=== PATIENT | female | born 1965 | race Caucasian/White ===

== ENCOUNTER 2017-05-04 12:51 | Emergency (ER) | payer OTHER ==
[2017-05-04] MEDS ORDERED: Ketorolac 30 MG/ML SDV IVPUSH ONE (13:30)
[2017-05-04] MEDS ORDERED: SUMAtriptan 6 MG/0.5 ML SDV SUBCUT ONE (13:30)
[2017-05-04] MEDS ORDERED: LORazepam 2 MG/ML SDV IVPUSH ONE (13:30)
[2017-05-04] MEDS ORDERED: Ondansetron 4 MG/2 ML SDV IVPUSH ONE (13:30)
[2017-05-04] MEDS ORDERED: Sodium Chloride 0.9% 1,000 ML IV ONE (13:30)
--- NOTE | 2017-05-04 13:30 | EDM.PDOC ---
ED HPI GENERAL MEDICAL PROBLEM - General Chief Complaint: Gastrointestinal Problem Stated Complaint: NUMBNESS,NAUSEOUS Time Seen by Provider: 05/04/17 13:28 Source of Information: Reports: Patient History Limitations: Reports: No Limitations - History of Present Illness INITIAL COMMENTS - FREE TEXT/NARRATIVE: History of present illness: [52-year-old female comes in complaining of migraine headache. Patient indicates she has been sporadically and this is one of her customary headaches finds that when she has increased stress or musculoskeletal pain or triggers one of her migraines. Patient cases is no worse than when she's had in the past but that is the type that needs additional intervention besides what she has a home with her sumatriptan.] Review of systems: As per history of present illness and below otherwise all systems reviewed and negative. Past medical history: As per history of present illness and as reviewed below otherwise noncontributory. Surgical history: As per history of present illness and as reviewed below otherwise noncontributory. Social history: No reported history of drug or alcohol abuse. Family history: As per history of present illness and as reviewed below otherwise noncontributory. Physical exam: HEENT: Atraumatic, normocephalic, pupils reactive, negative for conjunctival pallor or scleral icterus, mucous membranes moist, throat clear, neck supple, nontender, trachea midline. Lungs: Clear to auscultation, breath sounds equal bilaterally, chest nontender. Heart: S1S2, regular, negative for clicks, rubs, or JVD. Abdomen: Soft, nondistended, nontender. Negative for masses or hepatosplenomegaly. Negative for costovertebral tenderness. Pelvis: Stable nontender. Genitourinary: Deferred. Rectal: Deferred. Extremities: Atraumatic, negative for cords or calf pain. Neurovascular unremarkable. Neuro: Awake, alert, oriented. Cranial nerves II through XII unremarkable. Cerebellum unremarkable. Motor and sensory unremarkable throughout. Exam nonfocal. Assessment is benign save the subjective complaint is noted of migraine headache. Migraine resolved after treatment patient ready for home Diagnostics: [] Therapeutics: [IV fluid, Toradol, Ativan,] Impression: [Migraine headache] Plan: [Follow-up at home] Definitive disposition and diagnosis as appropriate pending reevaluation and review of above. migraine Pain Score (Numeric/FACES): 9 - Related Data Allergies Allergy/AdvReac Type Severity Reaction Status Date / Time No Known Allergies Allergy Verified 05/04/17 13:11 Home Meds: Home Meds Magnesium 2 tab PF DAILY 06/13/15 [History] SUMAtriptan [Imitrex] 100 mg PO DAILY 05/04/17 [History] Past Medical History Cardiovascular History: Reports: None Respiratory History: Reports: None Gastrointestinal History: Reports: Chronic Constipation, Hemorrhoids Genitourinary History: Reports: None Musculoskeletal History: Reports: None Neurological History: Reports: Migraines Psychiatric History: Reports: None Endocrine/Metabolic History: Reports: None Hematologic History: Reports: None Immunologic History: Reports: None Oncologic (Cancer) History: Reports: None Dermatologic History: Reports: None - Infectious Disease History Infectious Disease History: Reports: Mumps - Past Surgical History Head Surgeries/Procedures: Reports: None HEENT Surgical History: Reports: Naso-Sinus Surgery, Other (See Below) Social & Family History - Family History Neurological: Reports: Migraines, TIA - Tobacco Use Smoking Status *Q: Never Smoker Second Hand Smoke Exposure: Yes - Caffeine Use Caffeine Use: Reports: Coffee - Alcohol Use Days Per Week of Alcohol Use: 0 - Recreational Drug Use Recreational Drug Use: No Drug Use in Last 12 Months: No ED ROS GENERAL - Review of Systems Review Of Systems: See Below (History of present illness) ED EXAM, GENERAL - Physical Exam Exam: See Below (See history of present illness) Course - Vital Signs Last Recorded V/S: Last Vital Signs Temp 36.4 C 05/04/17 13:07 Pulse 87 05/04/17 13:07 Resp 16 05/04/17 13:07 BP 125/69 05/04/17 13:07 Pulse Ox 97 05/04/17 13:07 - Orders/Labs/Meds Meds: Medications Discontinued Medications Generic Name Dose Route Start Last Admin Trade Name Freq PRN Reason Stop Dose Admin Sodium Chloride 1,000 mls @ 999 mls/hr 05/04/17 13:30 05/04/17 13:45 Normal Saline IV 05/04/17 14:30 999 mls/hr STAT ONE Administration Ketorolac Tromethamine 30 mg 05/04/17 13:30 05/04/17 13:47 Toradol IVPUSH 05/04/17 13:31 30 mg ONETIME ONE Administration Lorazepam 1 mg 05/04/17 13:30 05/04/17 13:47 Ativan IVPUSH 05/04/17 13:31 1 mg ONETIME ONE Administration Ondansetron HCl 8 mg 05/04/17 13:30 05/04/17 13:50 Zofran IVPUSH 05/04/17 13:31 8 mg ONETIME ONE Administration Sumatriptan Succinate 6 mg 05/04/17 13:30 05/04/17 13:46 Imitrex SUBCUT 05/04/17 13:31 6 mg ONETIME ONE Administration Departure - Departure Time of Disposition: 14:42 Disposition: Home, Self-Care 01 Condition: Good Clinical Impression: Migraine - Discharge Information Referrals: Cyndie Gutierrez NP [Primary Care Provider] - Forms: ED Department Discharge Additional Instructions: The following information is given to patients seen in the emergency department who are being discharged to home. This information is to outline your options for follow-up care. We provide all patients seen in our emergency department with a follow-up referral. The need for follow-up, as well as the timing and circumstances, are variable depending upon the specifics of your emergency department visit. If you don't have a primary care physician on staff, we will provide you with a referral. We always advise you to contact your personal physician following an emergency department visit to inform them of the circumstance of the visit and for follow-up with them and/or the need for any referrals to a consulting specialist. The emergency department will also refer you to a specialist when appropriate. This referral assures that you have the opportunity for follow-up care with a specialist. All of these measure are taken in an effort to provide you with optimal care, which includes your follow-up. Under all circumstances we always encourage you to contact your private physician who remains a resource for coordinating your care. When calling for follow-up care, please make the office aware that this follow-up is from your recent emergency room visit. If for any reason you are refused follow-up, please contact the [facility] Emergency Department at and asked to speak to the emergency department charge nurse. Use your migraine medicine at home to help prevent migraines Follow-up with primary care provider one to 2 days Turn to ED as needed as discussed
[2017-05-04 14:59] VITALS: BP 114/67
== END 2017-05-04 15:00 | disposition home or self-care (01) ==
LOC: MW.ED 12:51
DX: G43.909 Migraine, unspecified, not intractable, without status migrainosus (principal); Z79.899 Other long term (current) drug therapy
CPT/HCPCS: 96361; 96372; 96374; 96375; 99283; J1885; J2060; J2405; J3030; J7040

== ENCOUNTER 2017-05-11 17:29 | Emergency (ER) | payer OTHER ==
--- NOTE | 2017-05-11 18:52 | EDM.PDOC ---
ED HPI GENERAL MEDICAL PROBLEM - General Chief Complaint: Upper Extremity Injury/Pain Stated Complaint: FALL/PAIN RT SHOULDER Time Seen by Provider: 05/11/17 18:45 - History of Present Illness INITIAL COMMENTS - FREE TEXT/NARRATIVE: HISTORY AND PHYSICAL: History of present illness: Patient is 52-year-old white female who presents status post fall she struck her head and right shoulder she has mild headache and right shoulder pain she is slightly limited range of motion of her right shoulder due to pain she denies other significant trauma or concern Review of systems: As per history of present illness and below otherwise all systems reviewed and negative. Past medical history: As per history of present illness and as reviewed below otherwise noncontributory. Surgical history: As per history of present illness and as reviewed below otherwise noncontributory. Social history: No reported history of drug or alcohol abuse. Family history: As per history of present illness and as reviewed below otherwise noncontributory. Physical exam: HEENT: Atraumatic, normocephalic, pupils reactive, negative for conjunctival pallor or scleral icterus, mucous membranes moist, throat clear, neck supple, nontender, trachea midline. Lungs: Clear to auscultation, breath sounds equal bilaterally, chest nontender. Heart: S1S2, regular, negative for clicks, rubs, or JVD. Abdomen: Soft, nondistended, nontender. Negative for masses or hepatosplenomegaly. Negative for costovertebral tenderness. Pelvis: Stable nontender. Genitourinary: Deferred. Rectal: Deferred. Extremities: Patient is some tenderness to palpation over anterior deltoid of her right shoulder with limited range of motion secondary to pain no gross deformity CMS and neurovascular exam is unremarkable Neuro: Awake, alert, oriented. Cranial nerves II through XII unremarkable. Cerebellum unremarkable. Motor and sensory unremarkable throughout. Exam nonfocal. Diagnostics: CT brain x-ray right shoulder Therapeutics: Sling right upper extremity Impression: #1 observation status post fall #2 closed head trauma #3 acute right shoulder injury Definitive disposition and diagnosis as appropriate pending reevaluation and review of above. Right Shoulder Pain Score (Numeric/FACES): 7 - Related Data Allergies Allergy/AdvReac Type Severity Reaction Status Date / Time No Known Allergies Allergy Verified 05/11/17 17:58 Home Meds: Home Meds Magnesium 2 tab PF DAILY 06/13/15 [History] SUMAtriptan [Imitrex] 100 mg PO ASDIRECTED PRN 05/04/17 [History] Past Medical History - Past Health History Medical/Surgical History: Denies Medical/Surgical History Cardiovascular History: Reports: None Respiratory History: Reports: None Gastrointestinal History: Reports: Chronic Constipation, Hemorrhoids Genitourinary History: Reports: None Musculoskeletal History: Reports: None Neurological History: Reports: Migraines Psychiatric History: Reports: None Endocrine/Metabolic History: Reports: None Hematologic History: Reports: None Immunologic History: Reports: None Oncologic (Cancer) History: Reports: None Dermatologic History: Reports: None - Infectious Disease History Infectious Disease History: Reports: Chicken Pox, Influenza, Mumps - Past Surgical History Head Surgeries/Procedures: Reports: None HEENT Surgical History: Reports: Naso-Sinus Surgery, Other (See Below) Social & Family History - Family History Neurological: Reports: Migraines, TIA - Tobacco Use Smoking Status *Q: Never Smoker Second Hand Smoke Exposure: No - Caffeine Use Caffeine Use: Reports: Coffee, Soda - Alcohol Use Days Per Week of Alcohol Use: 0 - Recreational Drug Use Recreational Drug Use: No Drug Use in Last 12 Months: No Review of Systems - Review of Systems Review Of Systems: ROS reveals no pertinent complaints other than HPI. ED EXAM, GENERAL - Physical Exam Exam: See Below (See dictation) Course - Vital Signs Last Recorded V/S: Last Vital Signs Temp 36.2 C 05/11/17 18:04 Pulse 69 05/11/17 18:04 Resp 18 05/11/17 18:04 BP 142/69 H 05/11/17 18:04 Pulse Ox 99 05/11/17 18:04 - Orders/Labs/Meds Orders: Active Orders 24 hr Category Date Time Status Head wo Cont [CT] Stat Exams 05/11/17 18:50 Taken Shoulder Comp Rt [CR] Stat Exams 05/11/17 18:50 Taken Departure - Departure Time of Disposition: 19:45 Disposition: Home, Self-Care 01 Condition: Good Clinical Impression: Head injury, Shoulder injury - Discharge Information Referrals: PCP,None [Primary Care Provider] - Forms: ED Department Discharge Additional Instructions: The following information is given to patients seen in the emergency department who are being discharged to home. This information is to outline your options for follow-up care. We provide all patients seen in our emergency department with a follow-up referral. The need for follow-up, as well as the timing and circumstances, are variable depending upon the specifics of your emergency department visit. If you don't have a primary care physician on staff, we will provide you with a referral. We always advise you to contact your personal physician following an emergency department visit to inform them of the circumstance of the visit and for follow-up with them and/or the need for any referrals to a consulting specialist. The emergency department will also refer you to a specialist when appropriate. This referral assures that you have the opportunity for followup care with a specialist. All of these measure are taken in an effort to provide you with optimal care, which includes your followup. Under all circumstances we always encourage you to contact your private physician who remains a resource for coordinating your care. When calling for followup care, please make the office aware that this follow-up is from your recent emergency room visit. If for any reason you are refused follow-up, please contact the [facility] emergency department at and asked to speak to the emergency department charge nurse. [facility] Professional Building [address] [place] [address], [address] [place] [address] Follow-up primary medical doctor call to schedule routine appointment with orthopedic clinic return as needed as discussed - My Orders Last 24 Hours: My Active Orders 05/11/17 18:50 Head wo Cont [CT] Stat Shoulder Comp Rt [CR] Stat - Assessment/Plan Last 24 Hours: My Active Orders 05/11/17 18:50 Head wo Cont [CT] Stat Shoulder Comp Rt [CR] Stat
[2017-05-12 00:15] VITALS: BP 114/82
--- NOTE | 2017-05-12 10:25 | CT ---
EXAM DATE: 05/11/17 PATIENT'S AGE: 52 Patient: ESTRELLA STERN Facility: [place], [place] Site . Site : 1965 Study: CT Head WO CONT [id number] 7:08:35 PM Ordering Physician: Samuel Brambila Final Report: INDICATION: FELL AND HIT HEAD. HX OF MIGRAINES. CT HEAD WITHOUT CONTRAST TECHNIQUE: Multiple axial CT images were performed through the head without intravenous contrast administration. COMPARISON: 11/27/[address] FINDINGS: No acute intracranial hemorrhage is identified. No extra-axial collections are evident and there is no mass effect or midline shift. Ventricles are normal in size and configuration. Brain parenchyma appears normal with unremarkable willard-white differentiation. Osseous structures are within normal limits and no fractures are seen. Included portions of the paranasal sinuses and mastoid air cells are normally aerated. IMPRESSION: Normal non-contrast head CT. JOEL QIU MD [employer] Dictated by: Rick Qiu MD @ 05/11/2017 19:16:06 (Electronic Signature) Report Signed by Proxy. [facility]
--- NOTE | 2017-05-12 10:26 | CR ---
EXAM DATE: 05/11/17 PATIENT'S AGE: 52 Patient: ESTRELLA STERN Facility: [place], [place] Site . Site : 1965 Study: XRay Shoulder Right [id number]/21/[id number] 7:08:39 PM Ordering Physician: Samuel Brambila Final Report: INDICATION: injury, fell on shoulder RIGHT SHOULDER No fracture, dislocation, or destructive lesion of bone is seen. No significant arthritic changes or soft tissue abnormalities are identified. IMPRESSION: Negative right shoulder radiographs. JOEL QIU MD [employer] Dictated by: Rick Qiu MD @ 05/11/2017 19:14:43 (Electronic Signature) Report Signed by Proxy. [facility]
== END 2017-05-11 20:05 | disposition home or self-care (01) ==
LOC: MW.ED 17:29
DX: S09.90XA Unspecified injury of head, initial encounter (principal); S49.91XA Unspecified injury of right shoulder and upper arm, initial encounter; W01.10XA Fall on same level from slipping, tripping and stumbling with subsequent striking against unspecified object, initial encounter
CPT/HCPCS: 70450; 70450-26; 73030-26-RT; 73030-RT; 99284; 99284-25

== ENCOUNTER 2018-01-10 07:23 | Day surgery (SDC) | payer OTHER ==
[~2018-01-10 07:23] MED LIST: Lactated Ringers 1,000 ML IV SCH
[2018-01-10] MEDS ORDERED: Acetaminophen/HYDROcodone 325-10 MG Tab PO PRN (08:00)
[2018-01-10] MEDS ORDERED: Ketorolac 10 MG Tab PO PRN (08:00)
[2018-01-10] MEDS ORDERED: ceFAZolin 1 GM in Premix Bag 1 BAG IV SCH (08:00)
[2018-01-10] MEDS ORDERED: fentaNYL 100 MCG/2 ML SDV ONE (08:04)
[2018-01-10] MEDS ORDERED: Midazolam 1 MG/ML 2 ML SDV ONE ×2 (08:05→08:20)
[2018-01-10] MEDS ORDERED: Dexamethasone 4 MG/ML 5 ML MDV ONE (08:05)
[2018-01-10] MEDS ORDERED: Bupivacaine 0.5% 30 ML SDV ONE (08:06)
[2018-01-10] MEDS ORDERED: Lidocaine 2% 5 ML SDV ONE (08:19)
[2018-01-10] MEDS ORDERED: Ondansetron 4 MG/2 ML SDV ONE ×2 (08:20→10:41)
[2018-01-10] MEDS ORDERED: Propofol 200 MG/20 ML SDV ONE (08:20)
[2018-01-10] MEDS ORDERED: Ketorolac 30 MG/ML SDV ONE (08:20)
[2018-01-10] MEDS ORDERED: fentaNYL 250 MCG/5 ML SDV ONE (08:20)
--- NOTE | 2018-01-10 08:46 | PCM.PREANE ---
Preanesthetic Assessment - Anesthesia/Transfusion/Family Hx Anesthesia History: Prior Anesthesia Without Reaction Family History of Anesthesia Reaction: No Transfusion History: No Prior Transfusion(s) - Review of Systems General: No Symptoms Pulmonary: No Symptoms Cardiovascular: No Symptoms Gastrointestinal: No Symptoms Neurological: No Symptoms Other: Reports: None - Physical Assessment NPO Status Date: 01/09/18 O2 Sat by Pulse Oximetry: 97 Respiratory Rate: 16 Vital Signs: Last Vital Signs Temp 37.0 C 01/10/18 08:24 Pulse 71 01/10/18 08:24 Resp 16 01/10/18 08:24 BP 136/80 01/10/18 08:24 Pulse Ox 97 01/10/18 08:24 Height: 1.71 m Weight: 77.111 kg ASA Class: 2 Mental Status: Alert & Oriented x3 Airway Class: Mallampati = 1 Dentition: Reports: Normal Dentition ROM/Head Extension: Full Lungs: Clear to Auscultation, Normal Respiratory Effort Cardiovascular: Regular Rate, Regular Rhythm - Allergies Allergies/Adverse Reactions: Allergies Allergy/AdvReac Type Severity Reaction Status Date / Time No Known Allergies Allergy Verified 01/04/18 11:19 - Anesthesia Plan Pre-Op Medication Ordered: Other (versed and fentanyl with ISB) - Acknowledgements Anesthesia Type Planned: General Anesthesia, Regional Block Pt an Appropriate Candidate for the Planned Anesthesia: Yes Alternatives and Risks of Anesthesia Discussed w Pt/Guardian: Yes Pt/Guardian Understands and Agrees with Anesthesia Plan: Yes Additional Comments: PMH: has TMJ syndrome with clicks and pops, no hx of mandibular dislocation, migraine, seasonal allergies, (denies asthma - was on pro air MDI about 1 yr ago for sinusitis.) PLAN: get for operative analgesia, ISB for post op pain management. 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: Musculoskeletal History: Reports: Fracture Other Musculoskeletal History: hx of right fx humerus with current shoulder injury Neurological History: Reports: Migraines, Vertigo Other Neuro History: hx of motion sickness Psychiatric History: Reports: Anxiety Endocrine/Metabolic History: Reports: None Hematologic History: Reports: Anemia Immunologic History: Reports: None Oncologic (Cancer) History: Reports: None Dermatologic History: Reports: None - Infectious Disease History Infectious Disease History: Reports: Chicken Pox, Influenza, Mumps - Past Surgical History HEENT Surgical History: Reports: Naso-Sinus Surgery GI Surgical History: Reports: Colonoscopy - SUBSTANCE USE Smoking Status *Q: Never Smoker Recreational Drug Use History: No - HOME MEDS Home Medications: Home Meds Magnesium 2 tab PO DAILY 06/13/15 [History] SUMAtriptan [Imitrex] 100 mg PO ASDIRECTED PRN MDD 200 mg 05/04/17 [History] Albuterol Sulfate [Proair Hfa] 1 puff INH ASDIRECTED PRN 01/04/18 [History] Cholecalciferol (Vitamin D3) [Vitamin D3] 2 cap PO DAILY 01/04/18 [History] Fluticasone Propionate [Flonase Allergy Relief] 1 spray NASBOTH DAILY PRN [History] Ibuprofen 400 - 600 mg PO ASDIRECTED PRN 01/04/18 [History] Meclizine HCl 25 mg PO TID PRN 01/04/18 [History] - CURRENT (IN HOUSE) MEDS Current Meds: Current Medications Hydrocodone Bitart/Acetaminophen ([place] 325-10 Mg) 1 - 2 tab PO Q4H PRN PRN Reason: Pain Cefazolin Sodium/Dextrose 1 gm (/ Premix) 50 mls @ 100 mls/hr IV ONCALL MYLES Lactated Ringer's (Ringers, Lactated) 1,000 mls @ 100 mls/hr IV ASDIRECTED MYLES Ketorolac Tromethamine (Toradol) 10 mg PO Q6H PRN PRN Reason: Pain Stop: 01/15/18 08:01 Discontinued Medications Bupivacaine HCl (Marcaine 0.5%) Confirm Administered Dose 30 ml .ROUTE .STK-MED ONE Stop: 01/10/18 08:07 Dexamethasone (Dexamethasone) Confirm Administered Dose 20 mg .ROUTE .STK-MED ONE Stop: 01/10/18 08:06 Fentanyl (Sublimaze) Confirm Administered Dose 100 mcg .ROUTE .STK-MED ONE Stop: 01/10/18 08:05 Fentanyl (Sublimaze) Confirm Administered Dose 250 mcg .ROUTE .STK-MED ONE Stop: 01/10/18 08:21 Lidocaine HCl (Xylocaine-Mpf 1%) Confirm Administered Dose 5 mls @ as directed .ROUTE .STK-MED ONE Stop: 01/10/18 08:06 Cefazolin Sodium/Dextrose (Ancef) Confirm Administered Dose 50 mls @ as directed .ROUTE .STK-MED ONE Stop: 01/10/18 08:23 Ketorolac Tromethamine (Toradol) Confirm Administered Dose 30 mg .ROUTE .STK- MED ONE Stop: 01/10/18 08:21 Lidocaine (Xylocaine-Mpf 2%) Confirm Administered Dose 10 ml .ROUTE .STK-MED ONE Stop: 01/10/18 08:20 Midazolam HCl (Versed 1 Mg/Ml) Confirm Administered Dose 2 mg .ROUTE .STK-MED ONE Stop: 01/10/18 08:06 Midazolam HCl (Versed 1 Mg/Ml) Confirm Administered Dose 2 mg .ROUTE .STK-MED ONE Stop: 01/10/18 08:21 Ondansetron HCl (Zofran) Confirm Administered Dose 4 mg .ROUTE .STK-MED ONE Stop: 01/10/18 08:21 Propofol (Diprivan 20 Ml) Confirm Administered Dose 400 mg .ROUTE .STK-MED ONE Stop: 01/10/18 08:21
--- NOTE | 2018-01-10 08:50 | PCM.SN ---
- Free Text/Narrative Note: procedure note - ISB in pre op holding rm risks and benefits explained, consent obtained. full monitors with NC O2 time out performed site marked, chloroprep skin disinfection needle placed wit twitch in ant shoulder , extinguished at 0.5 ma 28 ml of 0.5% bupivicaine with 8 mg dexamethasone injected in 5 ml increments no paresthesia, or blood return tolerated well, no comps with placement.
--- NOTE | 2018-01-10 08:51 | PCM.OPNOTE ---
- General Post-Op/Procedure Note Date of Surgery/Procedure: 01/10/18 Operative Procedure(s): R shoulder arthroscopy with SAD, limited debridement, and RTCR Post-Op Diagnosis: R shoulder impingement, degenerative anterior labral tear, and RTC tear Anesthesia Technique: General ET Tube, Regional Block Primary Surgeon: Carissa Romeo Loading Machine Operator: Carolin Zarco in mLs: 10 Condition: Good Free Text/Narrative:: #[id number]
[2018-01-10] MEDS ORDERED: Succinylcholine 200 MG/10 ML MDV ONE (09:23)
[2018-01-10] MEDS ORDERED: ePHEDrine 50 MG/ML SDV ONE ×2 (09:35→10:48)
[2018-01-10] MEDS ORDERED: Phenylephrine/Normal Saline 100 MCG/ML 10 ML Syringe ONE (10:20)
[2018-01-10] MEDS ORDERED: fentaNYL 100 MCG/2 ML SDV IVPUSH PRN (11:13)
[2018-01-10] MEDS ORDERED: HYDROmorphone 2 MG/ML SDV IVPUSH ONE (11:13)
--- NOTE | 2018-01-10 11:58 | PCM.POSTAN ---
POST ANESTHESIA ASSESSMENT - MENTAL STATUS Mental Status: Alert, Oriented - RESPIRATORY Respiratory Status: Respiratory Rate WNL, Airway Patent, O2 Saturation Stable - CARDIOVASCULAR CV Status: Pulse Rate WNL, Blood Pressure Stable - GASTROINTESTINAL GI Status: No Symptoms - PAIN Pain Score: 0 (has interscalene block) - POST OP HYDRATION Hydration Status: Adequate & Stable
--- NOTE | 2018-01-10 14:13 | OR ---
SURGEON: Carissa Romeo MD DATE OF PROCEDURE: 01/10/2018 PREOPERATIVE DIAGNOSIS: Right shoulder impingement syndrome. POSTOPERATIVE DIAGNOSES: 1. Right shoulder impingement syndrome. 2. Degenerative anterior labral tear. 3. Rotator cuff tear. PROCEDURES: Right shoulder arthroscopy with: 1. Subacromial decompression with release of coracoacromial ligament and acromioplasty. 2. Limited debridement with debridement of degenerative anterior labral tear. 3. Arthroscopic rotator cuff repair. 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 ESTIMATED BLOOD LOSS: 10 mL. TOURNIQUET TIME: Zero minutes. COMPLICATIONS: None. DVT PROPHYLAXIS: PAS boots to bilateral lower extremities. IMPLANTS USED: Two [employer] 2.9 mm JuggerKnot anchors and one [employer] Quattro Link anchor ([employer]). BRIEF HISTORY: Becky is a 52-year-old female who has had complaint of persistent right shoulder pain following a work related injury. Initially, she was found to have a nondisplaced fracture of the greater tuberosity. This was allowed to heal. She has continued to have difficulties. A repeat MRI showed that the fracture had healed; however, she continued to be bothered by persistent pain. MRI also showed a partial-thickness tear of the supraspinatus. Due to her lack of response to conservative treatment, I did recommend surgical intervention. The risks and goals of procedure were discussed with the patient and were documented preoperatively. She agreed to proceed. DESCRIPTION OF PROCEDURE: The patient was properly identified and brought to the operating room. She was transferred from the OR cart and placed on the operating table in supine position. General anesthesia was administered. An interscalene block had been administered preoperatively. After adequate anesthesia was obtained, the patient was placed into a beach-chair position. Her head was secured. Care was taken to pad all bony prominences. The right upper extremity was then prepped in standard fashion using ChloraPrep solution. It was then sterilely draped. A time-out was performed to ensure correct site and procedure. Preoperative antibiotics were given. The surgical site had been marked preoperatively. Bony landmarks were identified with a marking pen. Approximately 30 mL of normal saline was introduced into the glenohumeral joint. A posterior portal was established. Blunt trocar and cannula were introduced into the glenohumeral joint. Camera, inflow, and outflow were assembled. The rotator interval showed no significant synovitis. An anterior portal was then established through the rotator interval. The subscapularis was visualized and probed and found to be intact. No loose bodies were present within the subscapular recess. The biceps tendon appeared intact. It was pulled into the joint to evaluate the distal portion of the tendon. No synovitis or tearing was noted. The biceps attachment to the superior glenoid appeared intact. The anterior labrum showed degenerative changes. This was debrided with electrocautery back to a stable remnant. The posterior labrum appeared intact. Both the glenoid and humeral head were inspected. No degenerative findings were noted. I then extended into the axillary pouch. No loose bodies were identified. The arm was then brought into an abducted and externally rotated position. The bare area was noted posteriorly. As I progressed forward, there appeared to be an articular-sided partial-thickness tear of the supraspinatus. The cuff attachment appeared intact; however, there appeared to be intra-articular delamination of the anterior portion of the supraspinatus. The instruments were then removed from the glenohumeral joint. The arm was brought back into a neutral position. Blunt trocar and cannula were introduced into the subacromial space. Camera, inflow, and outflow were assembled. A lateral portal was established. A shaver was introduced and extensive bursectomy was performed. Electrocautery was also used. She did have extensive bursitis present. The coracoacromial ligament was released off the anterior portion of the acromion. She did have a large subacromial spur. Acromioplasty was performed using a 5.0 mm bur. This provided good decompression of the subacromial space. The rotator cuff was then inspected. There was a very thin area along the anterior aspect of the supraspinatus was correlated well with the intra- articular findings. The remainder of the cuff was quite robust. I elected to proceed with repair as this appeared to be nearly a full thickness in nature. Electrocautery was used to release the lateral fibers and the cuff tear was identified. A 5.0 mm bur was used to debride the bony footprint to a bleeding surface. A cuff grasper was used and the cuff was able to be easily re- approximated to the footprint. Two 2.9 mm JuggerKnot anchors were then placed just lateral to the articular margin. Sutures were passed through the cuff. These were tied in a posterior- to-anterior fashion and we had good re-approximation of the rotator cuff to the footprint. An additional lateral row was placed using the Quattro Link anchor incorporating all of the sutures. At the completion, the cuff tear was extensively probed. It was found to be nearly watertight with good re- approximation of the cuff to the footprint. The instruments were then removed from the shoulder. The portal sites were closed with 3-0 nylon. A Xeroform gauze was placed over the wounds and a bulky dressing was applied. She was placed into a shoulder immobilizer. She was awakened from her anesthetic and transferred back to the operating room cart. She was brought to recovery room in stable condition. All needle and sponge counts were correct. SAI SARGENT /[id number]
[2018-01-10 15:27] VITALS: BP 122/78
--- NOTE | 2018-01-11 07:53 | PCM48HPAN ---
Post Anesthesia Note - EVALUATION WITHIN 48HRS OF ANESTHETIC Vital Signs in Normal Range: Yes Patient Participated in Evaluation: Yes Respiratory Function Stable: Yes Airway Patent: Yes Cardiovascular Function Stable: Yes Hydration Status Stable: Yes Pain Control Satisfactory: Yes Nausea and Vomiting Control Satisfactory: Yes Mental Status Recovered: Yes Resp Rate: 14
== END 2018-01-10 15:58 | disposition home or self-care (01) ==
LOC: MW.SDS 07:23
PROVIDERS: ATTEND Orthopaedic Surgery
DX: M75.41 Impingement syndrome of right shoulder (principal); S43.401A Unspecified sprain of right shoulder joint, initial encounter; M75.111 Incomplete rotator cuff tear or rupture of right shoulder, not specified as traumatic; J30.9 Allergic rhinitis, unspecified; F41.9 Anxiety disorder, unspecified; Z79.899 Other long term (current) drug therapy
CPT/HCPCS: 29826; 29827; 88304; C1713; J0330; J0690; J1100; J1885; J2250; J2370; J2405; J2704; J3010; J3490; J7120; 01630

== ENCOUNTER 2018-01-11 02:37 | Emergency (ER) | payer OTHER ==
[2018-01-11] MEDS ORDERED: Ondansetron 4 MG/2 ML SDV IVPUSH ONE (02:41)
[2018-01-11] MEDS ORDERED: Sodium Chloride 0.9% 1,000 ML IV ONE (02:41)
--- NOTE | 2018-01-11 02:41 | EDM.PDOC ---
ED HPI GENERAL MEDICAL PROBLEM - General Chief Complaint: Gastrointestinal Problem Stated Complaint: THROWING UP Time Seen by Provider: 01/11/18 02:40 Source of Information: Reports: Patient - History of Present Illness INITIAL COMMENTS - FREE TEXT/NARRATIVE: HISTORY AND PHYSICAL: History of present illness: [Patient presents with left flank pain radiating to groin nausea vomiting woke from sleep with 8 out of 10 pain no fever chills sweats ] Review of systems: As per history of present illness and below otherwise all systems reviewed and negative. Past medical history: As per history of present illness and as reviewed below otherwise noncontributory. Surgical history: As per history of present illness and as reviewed below otherwise noncontributory. Social history: No reported history of drug or alcohol abuse. Family history: As per history of present illness and as reviewed below otherwise noncontributory. Physical exam: HEENT: Atraumatic, normocephalic, pupils reactive, negative for conjunctival pallor or scleral icterus, mucous membranes moist, throat clear, neck supple, nontender, trachea midline. Lungs: Clear to auscultation, breath sounds equal bilaterally, chest nontender. Heart: S1S2, regular, negative for clicks, rubs, or JVD. Abdomen: Soft, nondistended, nontender. Negative for masses or hepatosplenomegaly. Negative for costovertebral tenderness. Pelvis: Stable nontender. Genitourinary: Deferred. Rectal: Deferred. Extremities: Atraumatic, negative for cords or calf pain. Neurovascular unremarkable. Neuro: Awake, alert, oriented. Cranial nerves II through XII unremarkable. Cerebellum unremarkable. Motor and sensory unremarkable throughout. Exam nonfocal. Diagnostics: [] CBC CMP UA hCG lipase CT abdomen pelvis no contrast Therapeutics: [ 1 L normal saline bolus Zofran 8 mg IToradol 30 mg IV Morphine 2 mg IV Flomax Solu-Medrol Filter urine collection equipment Keflex [place] Flomax ] Impression: [ 2 mm stone left UVJ ] Definitive disposition and diagnosis as appropriate pending reevaluation and review of above. abdominal Pain Score (Numeric/FACES): 5 headache Pain Score (Numeric/FACES): 5 - Related Data Allergies Allergy/AdvReac Type Severity Reaction Status Date / Time No Known Allergies Allergy Verified 01/11/18 02:49 Home Meds: Home Meds Magnesium 500 tab PO DAILY 06/13/15 [History] SUMAtriptan [Imitrex] 100 mg PO ASDIRECTED PRN 05/04/17 [History] Albuterol Sulfate [Proair Hfa] 1 puff INH ASDIRECTED PRN 01/04/18 [History] Cholecalciferol (Vitamin D3) [Vitamin D3] 2,000 units PO DAILY 01/04/18 [History ] Fluticasone Propionate [Flonase Allergy Relief] 1 spray NASBOTH DAILY PRN [History] Meclizine HCl 25 mg PO TID PRN 01/04/18 [History] Acetaminophen/HYDROcodone [[place] 325-10 MG] 1 - 2 tab PO Q4H PRN #80 tablet [Rx] Ketorolac [Toradol] 10 mg PO Q6H PRN #20 tablet 01/10/18 [Rx] Loratadine [Claritin] 10 mg PO DAILY 01/11/18 [History] Past Medical History - Past Health History Medical/Surgical History: Denies Medical/Surgical History HEENT History: Reports: Allergic Rhinitis, Other (See Below) Other HEENT History: wears glasses, has 1 upper dental implant and a lower permanent dental bridge Cardiovascular History: Reports: None Respiratory History: Reports: None Gastrointestinal History: Reports: Other (See Below) Other Gastrointestinal History: some heartburn- uses OTC Tums Genitourinary History: Reports: None 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 History: Reports: Fracture Other Musculoskeletal History: hx of right fx humerus with current shoulder injury Neurological History: Reports: Migraines, Vertigo Other Neuro History: hx of motion sickness Psychiatric History: Reports: Anxiety Endocrine/Metabolic History: Reports: None Hematologic History: Reports: Anemia Immunologic History: Reports: None Oncologic (Cancer) History: Reports: None Dermatologic History: Reports: None - Infectious Disease History Infectious Disease History: Reports: Chicken Pox, Influenza, Mumps - Past Surgical History Head Surgeries/Procedures: Reports: None HEENT Surgical History: Reports: Naso-Sinus Surgery Other HEENT Surgeries/Procedures: hx sinus surgery GI Surgical History: Reports: Colonoscopy Social & Family History - Family History Neurological: Reports: Migraines, TIA - Caffeine Use Caffeine Use: Reports: Coffee, Soda ED ROS GENERAL - Review of Systems Review Of Systems: See Below ED EXAM, GENERAL - Physical Exam Exam: See Below Course - Vital Signs Last Recorded V/S: Last Vital Signs Temp 96.1 F 01/11/18 02:39 Pulse 83 01/11/18 02:39 Resp 20 01/11/18 02:39 BP 139/83 01/11/18 02:39 Pulse Ox 99 01/11/18 02:39 - Orders/Labs/Meds Orders: Active Orders 24 hr Category Date Time Status EKG Documentation Completion [RC] STAT Care 01/11/18 03:08 Active Abdomen 2V AP Flat Upright [CR] Stat Exams 01/11/18 04:03 Taken Chest 1V Frontal [CR] Stat Exams 01/11/18 02:38 Taken CULTURE URINE [RM] Stat Lab 01/11/18 03:45 Received UA W/MICROSCOPIC [URIN] Stat Lab 01/11/18 03:45 Ordered Labs: Laboratory Tests 01/11/18 01/11/18 01/11/18 Range/Units 02:50 02:50 03:45 WBC 10.80 (4.0-11.0) K/uL RBC 4.64 (4.30-5.90) M/uL Hgb 14.0 (12.0-16.0) g/dL Hct 40.9 (36.0-46.0) % MCV 88.1 (80.0-98.0) fL MCH 30.2 (27.0-32.0) pg MCHC 34.2 (31.0-37.0) g/dL RDW Std Deviation 41.8 (28.0-62.0) fl RDW Coeff of Magdalena 13 (11.0-15.0) % Plt Count 308 (150-400) K/uL MPV 9.60 (7.40-12.00) fL Neut % (Auto) 92.2 H (48.0-80.0) % Lymph % (Auto) 5.7 L (16.0-40.0) % Lawrence % (Auto) 2.1 (0.0-15.0) % Eos % (Auto) 0.0 (0.0-7.0) % Baso % (Auto) 0.0 (0.0-1.5) % Neut # (Auto) 10.0 H (1.4-5.7) K/uL Lymph # (Auto) 0.6 (0.6-2.4) K/uL Lawrence # (Auto) 0.2 (0.0-0.8) K/uL Eos # (Auto) 0.0 (0.0-0.7) K/uL Baso # (Auto) 0.0 (0.0-0.1) K/uL Nucleated RBC % 0.0 /100WBC Nucleated RBCs # 0 K/uL Sodium 137 (136-145) mmol/L Potassium 3.7 (3.5-5.1) mmol/L Chloride 99 (98-107) mmol/L Carbon Dioxide 24.1 (21.0-32.0) mmol/L BUN 8 (7.0-18.0) mg/dL Creatinine 0.8 (0.6-1.0) mg/dL Est Cr Clr Drug Dosing 78.18 mL/min Estimated GFR (MDRD) > 60.0 ml/min Glucose 147 H (74-106) mg/dL Calcium 9.0 (8.5-10.1) mg/dL Total Bilirubin 0.4 (0.2-1.0) mg/dL AST 22 (15-37) IU/L ALT 30 (14-63) IU/L Alkaline Phosphatase 81 (46-116) U/L Troponin I < 0.050 (0.000-0.056) ng/mL Total Protein 8.3 H (6.4-8.2) g/dL Albumin 4.0 (3.4-5.0) g/dL Globulin 4.3 H (2.0-3.5) g/dL Albumin/Globulin Ratio 0.9 L (1.3-2.8) Lipase 134 (73-393) U/L Urine Color YELLOW Urine Appearance CLEAR Urine pH 7.0 (5.0-8.0) Ur Specific Axson 1.010 (1.001-1.035) Urine Protein NEGATIVE (NEGATIVE) mg/dL Urine Glucose (UA) NEGATIVE (NEGATIVE) mg/dL Urine Ketones 15 H (NEGATIVE) mg/dL Urine Occult Blood NEGATIVE (NEGATIVE) Urine Nitrite NEGATIVE (NEGATIVE) Urine Bilirubin NEGATIVE (NEGATIVE) Urine Urobilinogen 0.2 (<2.0) EU/dL Ur Leukocyte Esterase TRACE (NEGATIVE) Urine RBC 0-1 (0-2/HPF) Urine WBC 0-2 (0-5/HPF) Ur Epithelial Cells OCCASIONAL (NONE-FEW) Urine Bacteria RARE (NEGATIVE) Urine Mucus LIGHT (NONE-MOD) Meds: Medications Discontinued Medications Generic Name Dose Route Start Last Admin Trade Name Traci PRN Reason Stop Dose Admin Sodium Chloride 1,000 mls @ 999 mls/hr 01/11/18 02:41 01/11/18 03:04 Normal Saline IV 01/11/18 03:41 999 mls/hr STAT ONE Administration Ondansetron HCl 8 mg 01/11/18 02:41 01/11/18 03:04 Zofran IVPUSH 01/11/18 02:42 8 mg ONETIME ONE Administration Departure - Departure Time of Disposition: 04:45 Disposition: Home, Self-Care 01 Condition: Good Clinical Impression: Ureteral stone - Discharge Information Forms: ED Department Discharge Additional Instructions: Medication as prescribed Return if symptoms persist or worsen Follow-up with primary care in 2 weeks collect stone for pathology return to primary care or urology provide filter and collection equipment/supplies [facility] - Primary Care [address] [place] [id number] [facility] - Urology [address] [place] [phone] The following information is given to patients seen in the emergency department who are being discharged to home. This information is to outline your options for follow-up care. We provide all patients seen in our emergency department with a follow-up referral. The need for follow-up, as well as the timing and circumstances, are variable depending upon the specifics of your emergency department visit. If you don't have a primary care physician on staff, we will provide you with a referral. We always advise you to contact your personal physician following an emergency department visit to inform them of the circumstance of the visit and for follow-up with them and/or the need for any referrals to a consulting specialist. The emergency department will also refer you to a specialist when appropriate. This referral assures that you have the opportunity for follow-up care with a specialist. All of these measure are taken in an effort to provide you with optimal care, which includes your follow-up. Under all circumstances we always encourage you to contact your private physician who remains a resource for coordinating your care. When calling for follow-up care, please make the office aware that this follow-up is from your recent emergency room visit. If for any reason you are refused follow-up, please contact the [facility] emergency department at and asked to speak to the emergency department charge nurse. - My Orders Last 24 Hours: My Active Orders 01/11/18 02:38 Chest 1V Frontal [CR] Stat 01/11/18 03:08 EKG Documentation Completion [RC] STAT 01/11/18 03:45 CULTURE URINE [RM] Stat UA W/MICROSCOPIC [URIN] Stat 01/11/18 04:03 Abdomen 2V AP Flat Upright [CR] Stat - Assessment/Plan Last 24 Hours: My Active Orders 01/11/18 02:38 Chest 1V Frontal [CR] Stat 01/11/18 03:08 EKG Documentation Completion [RC] STAT 01/11/18 03:45 CULTURE URINE [RM] Stat UA W/MICROSCOPIC [URIN] Stat 01/11/18 04:03 Abdomen 2V AP Flat Upright [CR] Stat
[2018-01-11 03:30] LABS: CHLORIDE,CL 99 mmol/L (98-107); SODIUM,NA 137 mmol/L (136-145)
[2018-01-11] MEDS ORDERED: Metoclopramide 10 MG/2 ML SDV IV ONE (05:45)
[2018-01-11 05:57] VITALS: BP 115/65
--- NOTE | 2018-01-11 10:04 | CR ---
EXAM DATE: 01/11/18 PATIENT'S AGE: 52 Patient: ESTRELLA STERN Facility: [place], [place] Site . Site : 1965 Study: XRay Chest [id number]/24/2018 3:37:36 AM Ordering Physician: Doctor Andino Final Report: HISTORY: Rotator cuff surgery. Chest pain and fever. COMPARISON: None. FINDINGS: Single portable view of the chest. No definite infiltrate. Heart size and pulmonary vascularity are within normal limits. Costophrenic angles sharp. Dictated by Genie Crawford MD @ Jan 11 2018 4:05AM (Electronic Signature) Report Signed by Proxy. BRENT
--- NOTE | 2018-01-11 10:06 | CR ---
EXAM DATE: 01/11/18 PATIENT'S AGE: 52 Patient: ESTRELLA STERN Facility: [place], [place] Site . Site : 1965 Study: XRay Abdomen [id number]/24/2018 4:40:03 AM Ordering Physician: Chandrika Solano Final Report: Indication: Pain and nausea, recent surgery Technique: Supine and upright views of the abdomen Comparison: None Findings/Impression: Clear lung bases. Nonspecific bowel gas pattern without evidence for free air pneumatosis. Note that the patient`s hand obscures portions of the right upper quadrant. No acute osseous abnormality. Dictated by Paulina Enamorado MD @ Jan 11 2018 5:24AM (Electronic Signature) Report Signed by Proxy. BRENT
== END 2018-01-11 06:35 | disposition home or self-care (01) ==
LOC: MW.ED 02:37
DX: R10.9 Unspecified abdominal pain (principal); R11.0 Nausea; Z98.890 Other specified postprocedural states
CPT/HCPCS: 36415; 71045; 74019; 80053; 81001; 83690; 84484; 85025; 87086; 93005; 96361; 96374; 96375; 99284; J2405; J2765; J7040

== ENCOUNTER 2019-02-22 09:21 | Emergency (ER) | payer OTHER ==
--- NOTE | 2019-02-22 09:38 | EDM.PDOC ---
ED HPI GENERAL MEDICAL PROBLEM - General Chief Complaint: Headache Stated Complaint: HEADACHE Time Seen by Provider: 02/22/19 09:30 - History of Present Illness INITIAL COMMENTS - FREE TEXT/NARRATIVE: HISTORY AND PHYSICAL: History of present illness: Patient 54-year-old white female with a past medical history significant for migraine headache who presents with concern of migraine headache she states is typical headache with associated dizziness photophobia and nausea she did use her sumatriptan at home with no improvement. She denies trauma fever chills neck pain or stiffness or other concern Review of systems: As per history of present illness and below otherwise all systems reviewed and negative. Past medical history: As per history of present illness and as reviewed below otherwise noncontributory. Surgical history: As per history of present illness and as reviewed below otherwise noncontributory. Social history: No reported history of drug or alcohol abuse. Family history: As per history of present illness and as reviewed below otherwise noncontributory. Physical exam: HEENT: Atraumatic, normocephalic, pupils reactive, negative for conjunctival pallor or scleral icterus, mucous membranes moist, throat clear, neck supple, nontender, trachea midline. Lungs: Clear to auscultation, breath sounds equal bilaterally, chest nontender. Heart: S1S2, regular, negative for clicks, rubs, or JVD. Abdomen: Soft, nondistended, nontender. Negative for masses or hepatosplenomegaly. Negative for costovertebral tenderness. Pelvis: Stable nontender. Genitourinary: Deferred. Rectal: Deferred. Extremities: Atraumatic, negative for cords or calf pain. Neurovascular unremarkable. Neuro: Awake, alert, oriented. Cranial nerves II through XII unremarkable. Cerebellum unremarkable. Motor and sensory unremarkable throughout. Exam nonfocal. Diagnostics: EKG Therapeutics: Saline 1 L bolus and Toradol 30 mg IV Zofran 4 mg IV Reglan 10 mg IV and Benadryl 50 mg IV Impression: #1 migraine headache Definitive disposition and diagnosis as appropriate pending reevaluation and review of above. Head Pain Score (Numeric/FACES): 10 - Related Data Allergies Allergy/AdvReac Type Severity Reaction Status Date / Time No Known Allergies Allergy Verified 01/11/18 02:49 Home Meds: Home Meds Magnesium 500 tab PO DAILY 06/13/15 [History] SUMAtriptan [Imitrex] 100 mg PO ASDIRECTED PRN 05/04/17 [History] Albuterol Sulfate [Proair Hfa] 1 puff INH ASDIRECTED PRN 01/04/18 [History] Cholecalciferol (Vitamin D3) [Vitamin D3] 2,000 units PO DAILY 01/04/18 [History ] Fluticasone Propionate [Flonase Allergy Relief] 1 spray NASBOTH DAILY PRN [History] Meclizine HCl 25 mg PO TID PRN 01/04/18 [History] Acetaminophen/HYDROcodone [[place] 325-10 MG] 1 - 2 tab PO Q4H PRN #80 tablet [Rx] Ketorolac [Toradol] 10 mg PO Q6H PRN #20 tablet 01/10/18 [Rx] Loratadine [Claritin] 10 mg PO DAILY 01/11/18 [History] Past Medical History - Past Health History Medical/Surgical History: Denies Medical/Surgical History HEENT History: Reports: Allergic Rhinitis, Other (See Below) Other HEENT History: wears glasses, has 1 upper dental implant and a lower permanent dental bridge Cardiovascular History: Reports: None Respiratory History: Reports: None Gastrointestinal History: Reports: Other (See Below) Other Gastrointestinal History: some heartburn- uses OTC Tums Genitourinary History: Reports: None 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 History: Reports: Fracture Other Musculoskeletal History: hx of right fx humerus with current shoulder injury Neurological History: Reports: Migraines, Vertigo Other Neuro History: hx of motion sickness Psychiatric History: Reports: Anxiety Endocrine/Metabolic History: Reports: None Hematologic History: Reports: Anemia Immunologic History: Reports: None Oncologic (Cancer) History: Reports: None Dermatologic History: Reports: None - Infectious Disease History Infectious Disease History: Reports: Chicken Pox, Influenza, Mumps - Past Surgical History Head Surgeries/Procedures: Reports: None HEENT Surgical History: Reports: Naso-Sinus Surgery Other HEENT Surgeries/Procedures: hx sinus surgery GI Surgical History: Reports: Colonoscopy Social & Family History - Family History Family Medical History: Noncontributory Neurological: Reports: Migraines, TIA - Tobacco Use Smoking Status *Q: Never Smoker Second Hand Smoke Exposure: No - Caffeine Use Caffeine Use: Reports: Coffee - Recreational Drug Use Recreational Drug Use: No ED ROS GENERAL - Review of Systems Review Of Systems: ROS reveals no pertinent complaints other than HPI. ED EXAM, GENERAL - Physical Exam Exam: See Below (See dictation) Course - Vital Signs Last Recorded V/S: Last Vital Signs Temp 35.7 C 02/22/19 09:31 Pulse 67 02/22/19 11:10 Resp 18 02/22/19 11:10 BP 134/74 02/22/19 11:10 Pulse Ox 100 02/22/19 11:10 - Orders/Labs/Meds Meds: Medications Discontinued Medications Generic Name Dose Route Start Last Admin Trade Name Freq PRN Reason Stop Dose Admin Diphenhydramine HCl 50 mg 02/22/19 09:34 02/22/19 09:43 Benadryl IVPUSH 02/22/19 09:35 50 mg ONETIME ONE Administration Sodium Chloride 1,000 mls @ 999 mls/hr 02/22/19 09:34 02/22/19 09:39 Normal Saline IV 02/22/19 10:34 999 mls/hr STAT ONE Administration Ketorolac Tromethamine 30 mg 02/22/19 09:34 02/22/19 09:49 Toradol IVPUSH 02/22/19 09:35 30 mg ONETIME ONE Administration Metoclopramide HCl 10 mg 02/22/19 09:34 02/22/19 09:53 Reglan IV 02/22/19 09:35 10 mg ONETIME ONE Administration Ondansetron HCl 4 mg 02/22/19 09:34 02/22/19 09:44 Zofran IVPUSH 02/22/19 09:35 4 mg ONETIME ONE Administration Ondansetron HCl Confirm 02/22/19 09:39 02/22/19 09:44 Zofran Administered 02/22/19 09:40 Not Given Dose 4 mg .ROUTE .STK-MED ONE Departure - Departure Time of Disposition: 17:34 Disposition: Home, Self-Care 01 Clinical Impression: Migraine, Otitis externa - Discharge Information Instructions: Otitis Externa, [id number], Migraine Headache, [id number] Referrals: PCP,Unknown [Primary Care Provider] - Forms: ED Department Discharge Care Plan Goals: Take Augmentin as prescribed, follow up with primary care provider and return to ED as needed with new or worsening symptoms.
[2019-02-22] MEDS: Sodium Chloride 0.9% 1,000 ML IV ONE (09:39)
[2019-02-22] MEDS: diphenhydrAMINE 50 MG/ML SDV IVPUSH ONE (09:43)
[2019-02-22] MEDS: Ondansetron 4 MG/2 ML SDV IVPUSH ONE (09:44)
[2019-02-22] MEDS: Ondansetron 4 MG/2 ML SDV ONE (09:44)
[2019-02-22] MEDS: Ketorolac 30 MG/ML SDV IVPUSH ONE (09:49)
[2019-02-22] MEDS: Metoclopramide 10 MG/2 ML SDV IV ONE (09:53)
[2019-02-22 11:36] VITALS: BP 134/74
== END 2019-02-22 11:10 | disposition home or self-care (01) ==
LOC: MW.ED 09:21
DX: G43.909 Migraine, unspecified, not intractable, without status migrainosus (principal); H60.90 Unspecified otitis externa, unspecified ear
CPT/HCPCS: 93005; 96361; 96374; 96375; 99284; J1200; J1885; J2405; J2765; J7040

== ENCOUNTER 2021-08-28 07:59 | Day surgery (SDC) | payer OTHER ==
[~2021-08-28 07:59] MED LIST changes: +Sodium Chloride 0.9% 10 ML Syringe FLUSH PRN; +Sodium Chloride 0.9% 2.5 ML Syringe FLUSH PRN; +Sodium Chloride 0.9% 20 ML SDV IV PRN; +propofoL 50 ML ONE
[2021-08-28] MEDS ORDERED: fentaNYL 100 MCG/2 ML SDV ONE (08:30)
[2021-08-28] MEDS ORDERED: Lidocaine 1% 5 ML VIAL ONE (08:30)
[2021-08-28 11:01] VITALS: BP 109/63; PULSE 74
== END 2021-08-28 11:10 | disposition home or self-care (01) ==
LOC: MW.SDS 07:59
PROVIDERS: ATTEND Surgery
DX: K63.89 Other specified diseases of intestine (principal); R59.0 Localized enlarged lymph nodes; K31.89 Other diseases of stomach and duodenum; K29.50 Unspecified chronic gastritis without bleeding; F41.9 Anxiety disorder, unspecified; G43.909 Migraine, unspecified, not intractable, without status migrainosus; Z79.899 Other long term (current) drug therapy; Z98.890 Other specified postprocedural states
CPT/HCPCS: 00813; J2704; J3010; J7120

== ENCOUNTER 2021-09-11 11:28 | Day surgery (SDC) | payer OTHER ==
[2021-09-11] MEDS ORDERED: Bupivacaine 0.5% 10 ML SDV ONE (11:38)
[2021-09-11] MEDS ORDERED: Octyl 2-Cyanoacrylate 1 Tube ONE (11:38)
[2021-09-11] MEDS ORDERED: Midazolam 1 MG/ML 2 ML SDV ONE (12:07)
[2021-09-11] MEDS ORDERED: fentaNYL 100 MCG/2 ML SDV ONE (12:07)
[2021-09-11] MEDS ORDERED: Propofol 200 MG/20 ML SDV ONE (12:07)
[2021-09-11] MEDS ORDERED: Dexmedetomidine 200 MCG/2 ML SDV ONE (12:09)
[2021-09-11] MEDS ORDERED: Lidocaine 1% 5 ML VIAL ONE (12:09)
[2021-09-11] MEDS ORDERED: Rocuronium Bromide 50 MG/5 ML Syringe ONE (12:09)
[2021-09-11] MEDS ORDERED: Esmolol 100 MG/10 ML SDV ONE (12:09)
[2021-09-11] MEDS ORDERED: Water For Injection, Sterile 20 ML ONE (12:09)
[2021-09-11] MEDS ORDERED: Metoclopramide 10 MG/2 ML SDV IVPUSH PRN (12:15)
[2021-09-11] MEDS ORDERED: Ondansetron 4 MG/2 ML SDV IVPUSH PRN (12:15)
[2021-09-11] MEDS ORDERED: fentaNYL 100 MCG/2 ML SDV IVPUSH PRN (12:15)
[2021-09-11] MEDS ORDERED: Naloxone 0.4 MG/ML SDV IVPUSH PRN (12:15)
[2021-09-11] MEDS ORDERED: HYDROmorphone 1 MG/ML Syringe IVPUSH PRN (12:15)
[2021-09-11] MEDS ORDERED: Albuterol 0.083% 2.5 MG/3 ML Neb Soln NEB PRN (12:15)
[2021-09-11] MEDS ORDERED: Bupivacaine 0.5% 30 ML SDV ONE (12:49)
[2021-09-11] MEDS ORDERED: propofoL 100 ML ONE (14:06)
[2021-09-11] MEDS ORDERED: Sugammadex Sodium 200 MG/2 ML VIAL ONE (14:35)
[2021-09-11] MEDS ORDERED: Ketorolac 30 MG/ML SDV ONE (14:35)
[2021-09-11] MEDS ORDERED: Ondansetron 4 MG/2 ML SDV ONE (14:35)
[2021-09-11] MEDS ORDERED: ePHEDrine 50 MG/ML SDV ONE (14:45)
[2021-09-11 17:06] VITALS: PULSE 78
[2021-09-11 17:28] VITALS: BP 116/64
[2021-09-11] MEDS ORDERED: Lactated Ringers 1,000 ML IV SCH (18:15)
== END 2021-09-11 18:20 | disposition home or self-care (01) ==
LOC: MW.SDS 11:28
PROVIDERS: ATTEND Surgery
DX: K80.10 Calculus of gallbladder with chronic cholecystitis without obstruction (principal); F41.9 Anxiety disorder, unspecified; G43.909 Migraine, unspecified, not intractable, without status migrainosus; Z79.899 Other long term (current) drug therapy; Z98.890 Other specified postprocedural states
CPT/HCPCS: 47562; A9270; J0131; J0690; J1885; J2250; J2405; J2704; J3490; J7030; 00790; J3010

== ENCOUNTER 2022-05-25 11:33 | Emergency (ER) | payer OTHER ==
[2022-05-25] MEDS ORDERED: Sodium Chloride 0.9% 2.5 ML Syringe FLUSH PRN (14:23)
[2022-05-25] MEDS ORDERED: Sodium Chloride 0.9% 10 ML Syringe FLUSH PRN (14:23)
[2022-05-25] MEDS ORDERED: Sodium Chloride 0.9% 1,000 ML IV ONE (14:23)
[2022-05-25 16:11] LABS: CARBON DIOXIDE,CO2 29.6 mmol/L (21.0-32.0); POTASSIUM,K 3.4 mmol/L (3.5-5.1)
[2022-05-25] MEDS ORDERED: Iopamidol 755 MG/ML 500 ML Multipack Bottle IVPUSH STA (16:43)
[2022-05-25] MEDS ORDERED: Amoxicillin/Clavulanate K 875-125 MG Tab PO ONE (17:29)
[2022-05-25 18:13] VITALS: BP 150/76; PULSE 70
== END 2022-05-25 18:13 | disposition home or self-care (01) ==
LOC: MW.ED 11:33
DX: K11.20 Sialoadenitis, unspecified (principal)
CPT/HCPCS: 36415; 70491; 80053; 83735; 85025; 96360; 99284; A9270; J3490; J7030; Q9967

== ENCOUNTER 2024-03-16 09:30 | Emergency (ER) | payer OTHER ==
[2024-03-16] MEDS: Ondansetron 4 MG/2 ML SDV IVPUSH STA (10:27)
[2024-03-16] MEDS: Sodium Chloride 0.9% 1,000 ML IV STA ×2 (10:27→12:05)
[2024-03-16 10:35] LABS: BASOPHILS ABSOLUTE AUTO 0.02 K/uL (0.00-0.20); BASOPHILS PERCENT AUTO 0.2 % (0.0-1.0); EOSINOPHILS ABSOLUTE AUTO 0.04 K/uL (0.00-0.45); EOSINOPHILS PERCENT AUTO 0.5 % (0.0-6.0); HEMATOCRIT 41.2 % (37.0-47.0); IMMATURE GRAN ABSOLUTE AUTO 0.02 K/uL (0.00-0.05); IMMATURE GRAN PERCENT AUTO 0.2 % (0.0-0.4); LYMPHOCYTES ABSOLUTE AUTO 1.06 K/uL (1.00-4.80); LYMPHOCYTES PERCENT AUTO 12.8 % (24.0-44.0); MEAN CORPUSCULAR HEMOGLOBIN 30.4 pg (28.0-32.0); MEAN CORPUSCULAR VOLUME 89.4 fL (83.0-99.0); MEAN PLATELET VOLUME 9.3 fL (9.4-12.3); MONOCYTES ABSOLUTE AUTO 0.23 K/uL (0.00-0.80); MONOCYTES PERCENT AUTO 2.8 % (0.0-8.0); NEUTROPHILS PERCENT AUTO 83.5 % (41.0-71.0); PLATELET COUNT,PLT 291 K/uL (150-400); RED BLOOD CELL COUNT 4.61 M/uL (4.10-5.30); WHITE BLOOD CELL COUNT,WBC 8.27 K/uL (3.9-11.3)
[2024-03-16] MEDS: Sodium Chloride 0.9% 10 ML Syringe FLUSH PRN (10:44)
[2024-03-16] MEDS: Sodium Chloride 0.9% 2.5 ML Syringe FLUSH PRN (10:44)
[2024-03-16] MEDS: Meclizine 25 MG Tab PO STA (10:44)
[2024-03-16 11:09] LABS: ALBUMIN 3.8 g/dL (3.4-5.0); BILIRUBIN TOTAL 0.4 mg/dL (0.2-1.0); CALCIUM 9.4 mg/dL (8.5-10.1); CREATININE 0.8 mg/dL (0.6-1.0); EST CRCL DRUG DOSING (CG) 71.81 mL/min; POTASSIUM,K 4.1 mmol/L (3.5-5.1); PROTEIN TOTAL,TP 7.6 g/dL (6.4-8.2)
[2024-03-16 13:41] VITALS: BP 139/63; PULSE 72
== END 2024-03-16 13:40 | disposition home or self-care (01) ==
LOC: MW.ED 09:30
DX: R42 Dizziness and giddiness (principal); Z79.899 Other long term (current) drug therapy; Z75.8 Other problems related to medical facilities and other health care
CPT/HCPCS: 36415; 80053; 83690; 85025; 96361; 96374; 99284; A9270; J2405; J3490; J7030